=== PATIENT | male | born 1990 | race Two or more races ===

== ENCOUNTER 2024-06-08 08:46 | Emergency (ER) | payer MEDICAID, OTHER ==
[~2024-06-08] VITALS: Ht 165.1 cm; Wt 133.5 kg
--- NOTE | 2024-06-08 08:55 | ED.PDOC ---
Eye-HPI HPI Comments 33-year-old male patient presents to the emergency room for pain, decreased hearing and tinnitus to the right ear that started on Friday. Patient is speaking very loudly due to inability to hear other people. Patient denies sticking anything into his ears. Patient denies any drainage from his ears. Patient denies any trauma. Patient denies any fevers.. Time Seen by MD: 08:52 Reviewed Notes: Nurses Notes, Medications Allergies: Coded Allergies: Dextromethorphan (Verified Allergy, Mild, swelling, 06/08/24) per patient Guaifenesin (Verified Allergy, Mild, swelling, 06/08/24) per patient Yellow Dye (Verified Allergy, Mild, swelling, 06/08/24) per patient Home Meds Active Scripts Amoxicillin & Pot Clavulanate (AUGMENTIN TABLET) 875 Mg Tb, 875 MG PO BID for 10 Days, #20 TAB 0 Refills Prov:[facility] 06/08/24 Carbamide Peroxide (Debrox) 6.5 % Ban, 5 DROP OT DAILY for 5 Days, #5 ML 0 Refills Prov:[facility] 06/08/24 Information Source: Patient Mode of Arrival: Ambulatory Past Medical History PAST MEDICAL HISTORY: Denies Surgical History: Denies all surgeries Family History Family History: Reviewed,noncontributory to illness Constitutional: denies: chills, diaphoresis, fatigue, fever, malaise, sweats, weakness, others EENTM: reports: ear pain (right), ear ringing (right); denies: blurred vision, double vision, ear bleeding, ear discharge, ear drainage, eye pain, eye redness, hearing loss, mouth pain, mouth swelling, nasal discharge, nose bleeding, nose congestion, nose pain, photophobia, tearing, throat pain, throat swelling, voice changes, others Respiratory: denies: cough, hemoptysis, orthopnea, SOB at rest, shortness of breath, SOB with excertion, stridor, wheezing, others Cardiovascular: denies: chest pain, dizzy spells, diaphoresis, Dyspnea on exertion, edema, irregular heart beat, left arm pain, lightheadedness, palpitations, PND, syncope, others Gastrointestinal: denies: abdomen distended, abdominal pain, blood streaked bowels, constipated, diarrhea, dysphagia, difficulty swallowing, hematemesis, melena, nausea, poor appetite, poor fluid intake, rectal bleeding, rectal pain, vomiting, others Genitourinary: denies: burning, dysuria, flank pain, frequency, hematuria, incontinence, penile discharge, penile sore, pain, testicle pain, testicle swelling, urgency, others Neurological: denies: dizziness, fainting, headache, left sided numbness, left sided weakness, numbness, paresthesia, pre-existing deficit, right sided numbness, right sided weakness, seizure, speech problems, tingling, tremors, wea kness, others Musculoskeletal: denies: back pain, gout, joint pain, joint swelling, muscle pain, muscle stiffness, neck pain, others Integumetry: denies: bruises, change in color, change in hair/nails, dryness, l aceration, lesions, lumps, rash, wounds, others Hematologic/Lymphatic: denies: anemia, blood clots, easy bleeding, easy bruising, swollen glands, others Endocrine: denies: excessive hunger, excessive sweating, excessive thirst, excessive urination, flushing, intolerance to cold, intolerance to heat, unexplained weight gain, unexplained weight loss, others Psychiatric: denies: anxiety, bipolar disorder, depression, hopeless, panic disorder, schizophrenia, sleepless, suicidal, others All Other Systems: Reviewed and Negative Physical Exam General Appearance: No Apparent Distress, Normal HEENT: Pharynx Normal, TM Abnormal (L) (Cerumen impaction), TM Abnormal (R) (Cerumen impaction) Neck: Full Range of Motion, Non-Tender, Normal, Normal Inspection Respiratory: Chest Non-Tender, Lungs Clear, No Accessory Muscle Use, No Respiratory Distress, Normal Breath Sounds Cardiovascular: No Edema, No JVD, No Murmur, No Gallop, Normal Peripheral Pulses, Regular Rate/Rhythm Breast Exam: Deferred Gastrointestinal: No Organomegaly, Non Tender, No Pulsatile Mass, Normal Bowel Sounds, Soft Genitalia: Deferred Pelvic: Deferred Rectal: Deferred Extremities: No calf tenderness, Normal capillary refill, Normal inspection, Normal range of motion, Non-tender, No pedal edema Musculoskeletal : Apperance: Normal Neurologic: Alert, immunopathologist II-XII nml as Tested, No Motor Deficits, Normal Affect, Normal Mood, No Sensory Deficits Cerebellar Function: Normal Reflexes: Normal Skin: Dry, Normal Color, Warm Lymphatic: No Adenopathy Was a procedure done? Was a procedure done?: Yes Sedation Sedation?: No Other Procedure Procedure Irrigation of bilateral ears. Improvement after irrigation. Cerumen is still present on right EENT DIFF Eye: N/A Ear: Cerumen Impaction, Otitis Externa, Otitis Media, Perforation Nose: N/A Mouth: N/A Sore Throat: N/A X-Ray, Labs, Meds, VS Vital Signs Date Time Temp Pulse Resp B/P (MAP) Pulse Ox O2 Delivery O2 Flow Rate FiO2 06/08/24 11:41 97.9 71 18 138/80 (99) 95 97.9 06/08/24 10:02 97.7 79 16 155/94 (114) 96 97.7 06/08/24 10:02 79 16 96 Room Air 06/08/24 08:59 98.1 74 17 177/109 (131) 97 Current Medications Medications (Trade) Dose Ordered Sig/Марина Route Start Time Stop Time Status Last Admin Docusate Sodium (Colace Capsule) 200 mg ONCE ONCE PO 06/08/24 09:00 06/08/24 09:01 DC 06/08/24 09:13 Carbamide Peroxide (Debrox Otic (Ear)) 5 drop ONCE ONCE EACH EAR 06/08/24 09:45 06/08/24 09:46 DC 06/08/24 10:08 X-Ray, Labs, Meds, VS Comment 33-year-old male patient presents to the clinic for decreased hearing and ringing in the bilateral ears x4 days. Patient denies any other medical history. Patient does not currently have a PCP. Pt applied for emergency [facility] and will obtain a PCP. Colace and Debrox placed in bilateral ears. Here irrigation performed on bilateral ears. Cerumen removed from bilateral ears which is dark in color. On re-evaluation patient has symptomatic improvement. Patient has cerumen present on right. Tympanic membrane visible on the left. No perforation noted. Patient to take antibiotics as prescribed. Patient to continue administering debrox. Patient advised not to place anything in the ears. Patient is stable for discharge at this time. All test results and diagnostic imaging have been interpreted. All diagnostic findings, discharge care, and education instruction provided to the patient. Follow-up with PCP in 2-3 days Patient verbalized understanding, discharge instructions and agrees to treatment plan Vital signs are stable Patient is ambulatory Patient advised of which symptoms necessitate a return visit to the emergency room. Patient to return emergency room for any new worsening symptoms. Patient is aware that the purpose of this visit is for an acute medical emergency requiring emergent stabilization. Chronic conditions, including malignancies have not been ruled out. Patient is instructed to follow up with PCP as directed for continued care and workup. If unable to arrange follow up, patient is to return to the emergency room for reassessment. Patient was given verbal and written discharge instructions and acknowledges understanding Time of 1ST Reevaluation: 11:00 Reevaluation 1ST: Improved Patient Education/Counseling: Diagnosis, Treatment, Prognosis Family Education/Counseling: No Family Present Departure 1 Departure Time of Disposition: 11:25 Impression: Primary Impression: Otitis media of both ears Qualified Codes: H66.3X3 - Other chronic suppurative otitis media, bilateral Additional Impressions: Impacted cerumen of both ears Decreased hearing of both ears Disposition: HOME / SELF CARE / HOMELESS Condition: Stable e-Prescriptions Amoxicillin & Pot Clavulanate (AUGMENTIN TABLET) 875 Mg Tb 875 MG PO BID for 10 Days, #20 TAB 0 Refills Prov: [facility] 06/08/24 Carbamide Peroxide (Debrox) 6.5 % Ban 5 DROP OT DAILY for 5 Days, #5 ML 0 Refills Prov: [facility] 06/08/24 Discharged With: Self Critical Care Note Critical Care Time?: No Stability Stability form required: No Heart Score Heart Score: Heart Score Response (Comments) Value History N/A 0 EKG N/A 0 Age N/A 0 Risk Factors N/A 0 Troponin N/A 0 Total 0 [facility] Jun 08, 2024 08:55
[2024-06-08] MEDS: DOCUSATE SOD 100 MG CAP PO ONE (09:13)
[2024-06-08] MEDS: CARBAMIDE PEROXIDE 6.5% OTIC(EAR) SOLN 15ML EACH EAR ONE (10:08)
[2024-06-08] MEDS ORDERED: AUG875T PO (10:45)
[2024-06-08] MEDS ORDERED: CARB6.5S44 OT (10:45)
[2024-06-08 11:41] VITALS: BP 138/80; PULSE 71; RESP 18; TEMP 97.9; O2SAT 95
== END 2024-06-08 11:42 | disposition home or self-care (01) ==
LOC: ER 08:46
DX: H61.23 Impacted cerumen, bilateral (principal); H66.93 Otitis media, unspecified, bilateral; Z88.8 Allergy status to other drugs, medicaments and biological substances; Z79.899 Other long term (current) drug therapy; Z91.09 Other allergy status, other than to drugs and biological substances
CPT/HCPCS: 69209